=== PATIENT | female | born 1980 | race Asian ===

== ENCOUNTER 2024-10-28 21:58 | Emergency (ER) | payer SELFPAY ==
--- NOTE | 2024-10-28 22:29 | RAD REPORT ---
EXAM: Chest Pa And Lat (2 Views) HISTORY: 44 years Female Cough;Fever COMPARISON: None. FINDINGS: LUNGS/PLEURA: The lungs are clear. No pleural effusions or pneumothorax. No pulmonary edema. CARDIAC/MEDIASTINUM: The cardiac silhouette is within normal limits. UPPER ABDOMEN: No significant abnormality. BONES: No acute abnormality. LINES/TUBES/OTHER: N/A IMPRESSION: No evidence of acute cardiopulmonary disease.
[2024-10-28 22:49] LABS: Influenza A Ag Negative; Influenza B Ag Negative; SARS-CoV-2 Antigen Rapid Res Negative (Negative)
--- NOTE | 2024-10-28 23:06 | EDPHYS ---
Physician Documentation [facility] Name: Ele Cohen Age: 44 yrs Sex: Female : 1980 Arrival Date: 10/28/2024 Time: 21:58 Bed 9 Private MD: ED Physician Myles Lopez HPI: 10/28 22:21 This 44 yrs old Other Race Female presents to ER via Ambulatory with complaints of Flu dr5 Symptoms. 22:21 Onset: The symptoms/episode began/occurred yesterday. Patient is a 44-year-old female dr5 with no past medical history coming in with flulike symptoms, sore throat, cough, congestion that started yesterday. 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 Patient reports she took Tylenol at 830 this evening for her fever.. Historical: - Allergies: 22:19 No Known Allergies; me1 - Home Meds: 22:19 None [Active]; me1 - PMHx: 22:19 None; me1 - PSHx: 22:19 Appendectomy; ectopic ; me1 - Immunization history:: Adult Immunizations up to date. - Infectious Disease History:: Denies. - Social history:: Smoking status: Patient denies any tobacco usage or history of. ROS: 22:21 Constitutional: as per hpi dr5 Exam: 22:21 Constitutional: This is a well developed, well nourished patient who is awake, alert, dr5 and in no acute distress. 22:23 Constitutional: The patient appears in no acute distress, alert, dr5 22:23 Constitutional: The patient appears in no acute distress, alert, 22:23 Head/face: Exam is negative for acute changes, 22:23 Eyes: Exam is negative for acute changes, Vital Signs: 22:17 BP 137 / 78; Pulse 91; Resp 16; Temp 98.3; Pulse Ox 100% ; Weight 71.67 kg; Height 5 me1 ft. 6 in. ; Pain 4/10; 22:17 Body Mass Index 25.50 (71.67 kg, 167.64 cm) me1 22:17 Pain Scale: Adult me1 MDM: 22:03 Medical Screening Exam initiated dr5 22:23 Differential diagnosis: viral Infection, bacterial infection, URI. Data reviewed: vital dr5 signs, nurses notes. Care significantly affected by the following Social Determinants of Health: Poor access to healthcare and/or lack of insurance, Poor access to transportation. Counseling: I had a detailed discussion with the patient and/or guardian regarding the historical points, exam findings, and any diagnostic results supporting the discharge/admit diagnosis, the presence of at least one elevated blood pressure reading (>120/80) during this emergency department visit, lab results, radiology results, the need for outpatient follow up, for definitive care, a family practitioner, to return to the emergency department if symptoms worsen or persist or if there are any questions or concerns that arise at home. 10/28 22:10 Order name: COVID-19 Ag + Flu A+B Ag; Complete Time: 23:01 dr5 10/28 22:10 Order name: Group A Streptococcus Rapid; Complete Time: 23: dr5 10/28 22:46 Order name: Throat Culture EDND 10/28 22:10 Order name: Chest Pa And Lat (2 Views) XRAY; Complete Time: 22:33 dr5 Administered Medications: No medications were administered Disposition Summary: 10/28/24 23:06 Discharge Ordered Notes: Location: Home dr5 Condition: Stable dr5 Diagnosis - Acute upper respiratory infection, unspecified dr5 Followup: dr5 - With: Emergency Department - When: As needed - Reason: Worsening of condition Followup: dr5 - With: Private Physician - When: 1 - 2 days - Reason: Recheck today's complaints, Continuance of care, Re-evaluation by your physician Discharge Instructions: - Discharge Summary Sheet dr5 - Upper Respiratory Infection, Adult dr5 Forms: - Work release form dr5 - Medication Reconciliation Form dr5 - Patient Portal Instructions dr5 - Leadership Thank You Letter dr5 Prescriptions: - Medrol (Wili) 4 mg Oral Tablets, Dose Pack - take 1 tablet ORAL route as directed - follow package instructions; 1 packet; dr5 Refills: 0, Product Selection Permitted Signatures: Dispatcher [employer] La Chandra RN RN me1 Frank Faith, HERMINIA-C VP RESEARCH-Cdr5 Corrections: (The following items were deleted from the chart) 22:19 22:19 PSHx: Unable to Obtain; 1 me1
--- NOTE | 2024-10-28 23:06 | ER ---
Nurse's Notes [facility] Name: Ele Cohen Age: 44 yrs Sex: Female : 1980 Arrival Date: 10/28/2024 Time: 21:58 Bed 9 Private MD: Diagnosis: Acute upper respiratory infection, unspecified Presentation: 10/28 22:17 Chief complaint: Patient states: fever, malaise, cough, congestion, LOCK since yesterday. me1 Coronavirus screen: Vaccine status: Patient reports being unvaccinated. Ebola Screen: No symptoms or risks identified at this time. Initial Sepsis Screen: Does the patient meet any 2 criteria? HR > 90 bpm. Risk Assessment: Do you want to hurt yourself or someone else? Patient reports no desire to harm self or others. Onset of symptoms was October 27, 2024. 22:17 Method Of Arrival: Ambulatory nh1 22:17 Acuity: EDWIN 3 me1 23:17 Initial Sepsis Screen: Does the patient have a suspected source of infection? No. cm10 Patient's initial sepsis screen is negative. Historical: - Allergies: 22:19 No Known Allergies; me1 - Home Meds: 22:19 None [Active]; me1 - PMHx: 22:19 None; me1 - PSHx: 22:19 Appendectomy; ectopic ; me1 - Immunization history:: Adult Immunizations up to date. - Infectious Disease History:: Denies. - Social history:: Smoking status: Patient denies any tobacco usage or history of. Screenin:16 [facility] ED Fall Risk Assessment (Adult) History of falling in the last 3 months, cm10 including since admission No falls in past 3 months (0 pts) Confusion or Disorientation No (0 pts) Intoxicated or Sedated No (0 pts) Impaired Gait No (0 pts) Mobility Assist Device Used No (0 pt) Altered Elimination No (0 pt) Score/Fall Risk Level 0 - 2 = Low Risk Oriented to surroundings, Maintained a safe environment, Hourly rounding (assess needs \T\ fall precautionary measures) done. Abuse screen: Denies threats or abuse. Denies injuries from another. Nutritional screening: No deficits noted. Tuberculosis screening: No symptoms or risk factors identified. Assessment: 23:15 General: Appears in no apparent distress. uncomfortable, Behavior is calm, cooperative. cm10 Pain: Pain currently is 4 out of 10 on a pain scale. Neuro: No deficits noted. Level of Consciousness is awake, alert, obeys commands, Oriented to person, place, time, situation, Appropriate for age. Respiratory: No deficits noted. Reports cough that is Airway is patent Respiratory effort is even, unlabored, Respiratory pattern is regular, symmetrical. Musculoskeletal: No deficits noted. Range of motion: intact in all extremities. Vital Signs: 22:17 BP 137 / 78; Pulse 91; Resp 16; Temp 98.3; Pulse Ox 100% ; Weight 71.67 kg; Height 5 me1 ft. 6 in. ; Pain 4/10; 22:17 Body Mass Index 25.50 (71.67 kg, 167.64 cm) nh1 22:17 Pain Scale: Adult nh1 ED Course: 22:00 Patient arrived in ED. jj6 22:02 Frank Faith FNP-C is [facility]. dr5 22:02 Myles Lopez MD is Attending Physician. dr5 22:19 Triage completed. me1 22:19 Arm band placed on Patient placed in waiting room. me1 22:20 COVID swab sent to lab. Flu and/or RSV swab sent to lab. Strep swab sent to lab. me1 22:25 Chest Pa And Lat (2 Views) XRAY In Process Unspecified. EDMS 23:16 Patient has correct armband on for positive identification. Provided Education on: cm10 Follow-up instructions. 23:16 No provider procedures requiring assistance completed. Patient did not have IV access cm10 during this emergency room visit. Administered Medications: No medications were administered Medication: 23:16 VIS not applicable for this client. cm10 Outcome: 23:06 Discharge ordered by . dr5 23:17 Discharged to home ambulatory, cm10 23:17 Condition: good 23:17 Discharge instructions given to patient, Instructed on discharge instructions, follow up and referral plans. medication usage, Demonstrated understanding of instructions, follow-up care, medications, Prescriptions given X 1, 23:17 Patient left the ED. cm10 Signatures: Dispatcher [employer] EDMS [place] Grimes [id number] Tracy Peña RN RN cm10 La Frank RN RN nh1 Frank Faith FNP-C ACCESS ANALYST-Cdr5 Corrections: (The following items were deleted from the chart) 22:19 PSHx: Unable to Obtain; me1 me1
[2024-10-28 23:27] VITALS: BP 137/78; TEMP 98.3; O2SAT 100
== END 2024-10-28 23:17 | disposition home or self-care (01) ==
LOC: ER 21:58
DX: J06.9 Acute upper respiratory infection, unspecified (principal); Z11.52 Encounter for screening for COVID-19
CPT/HCPCS: 36415; 71046; 87070; 87428; 99283